=== PATIENT | male | born 1955 | race Caucasian/White ===

== ENCOUNTER → 2024-03-26 10:56 | Outpatient (BNVA) | payer MEDICARE, SELFPAY | PROVIDERS: PCP Family Medicine; Visit Provider Family Medicine | DX: I10 Essential (primary) hypertension (principal); Z13.6 Encounter for screening for cardiovascular disorders; K21.9 Gastro-esophageal reflux disease without esophagitis; N52.9 Male erectile dysfunction, unspecified; Z85.46 Personal history of malignant neoplasm of prostate | CPT/HCPCS: 80053; 80061; 84153; 84439; 84443; 85025 ==

== ENCOUNTER 2024-07-19 10:01 | Outpatient (CLI) | payer MEDICARE, SELFPAY ==
--- NOTE | 2024-07-19 10:12 | XRR_ITS ---
PROCEDURE INFORMATION: Exam: XR Right Shoulder Exam date and time: 07/19/2024 10:34 AM Age: 68 years old Clinical indication: Pain; Shoulder; Right; Additional info: Right shoulder pain for months TECHNIQUE: Imaging protocol: Radiologic exam of the right shoulder. Views: 2 or more views. COMPARISON: No relevant prior studies available. FINDINGS: Bones/joints: No acute fracture or dislocation. Mild glenohumeral joint osteoarthritis. 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 Soft tissues: Normal. XR/XR shoulder RT min 2V* [id number] IMPRESSION: No acute osseous abnormality.
== END 2024-07-19 10:02 | disposition home or self-care (01) ==
LOC: RAD 10:05
PROVIDERS: PCP Family Medicine; Visit Provider Family Medicine
DX: M19.011 Primary osteoarthritis, right shoulder (principal)
CPT/HCPCS: 73030

== ENCOUNTER 2024-09-02 09:56 | Outpatient (CLI) | payer MEDICARE, SELFPAY ==
--- NOTE | 2024-09-02 10:15 | MR_ITS ---
WS: [id number] MRI RIGHT SHOULDER NONCONTRAST TECHNIQUE: Sagittal T2, coronal T1, T2 and proton density imaging. Axial gradient PDE imaging. CLINICAL INFORMATION: R shoulder pain X months; failed injection; had x-rays COMPARISON: None. FINDINGS: Advanced arthritis AC joint with synovial thickening. Small amount of fluid and edema. Small amount of subacromial and subdeltoid fluid. Susceptibility artifact in the subcutaneous soft tissues degrades some images. Moderate narrowing of the subacromial space. Impingement on the distal supraspinatus with subacromial spurring. Cystic degenerative changes in the greater tuberosity. Chronic thinning of the supraspinatus with high-grade tear distally with 1.6 cm of tendon retraction from the insertion. Tendinopathy supraspinatus and infraspinatus. Normal teres minor. Subscapularis tendon appears intact. Only tiny biceps tendon remnant within the bicipital groove likely due to chronic tear. Intra-articular biceps tendon is not well visualized. MR/MR shoulder RT wo con* [id number] IMPRESSION: 1. 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 Narro wing of the subacromial space with subacromial spurring. 2. High-grade tear distal supraspinatus insertion with 1.6 cm of tendon retrac tion. 3. Tendinopathy infraspinatus and supraspinatus. 4. Advanced degenerative narrowing of the glenohumeral articulation. 5. Only tiny biceps tendon remnant within the bicipital groove. Intra-articula r biceps tendon is not visualized.
== END 2024-09-02 09:57 | disposition home or self-care (01) ==
PROVIDERS: PCP Family Medicine; Visit Provider Family Medicine
DX: M19.011 Primary osteoarthritis, right shoulder (principal); M75.101 Unspecified rotator cuff tear or rupture of right shoulder, not specified as traumatic; M25.511 Pain in right shoulder
CPT/HCPCS: 73221